=== PATIENT | male | born 1950 | race American Indian/Alaskan Native ===

== ENCOUNTER 2016-11-17 13:21 | Outpatient (CLI) | payer BC, MEDICARE ==
--- NOTE | 2016-11-17 13:58 | XRay Report ---
LEFT KNEE, 3 VIEWS History: Acute left knee pain. Findings: Bone mineralization is within normal limits. Minimal osteoarthritic findings are demonstrated. There is no evidence for fracture, bone lesion or large osteochondral defect. A small joint effusion is suspected on the lateral image. Impression: Minimal osteoarthritic changes. Small joint effusion.
== END 2016-11-17 13:22 | disposition home or self-care (01) ==
LOC: XRAY 13:21
PROVIDERS: ATTEND Internal Medicine
DX: M17.12 Unilateral primary osteoarthritis, left knee (principal)

== ENCOUNTER 2018-08-10 11:59 | Outpatient (CLI) | payer BC, MEDICARE ==
[2018-08-10 12:37] LABS: BUN/Creatinine Ratio 16; Blood Urea Nitrogen 14 mg/dL (9-20); Calcium 8.7 mg/dL (8.4-10.2); Hemolysis Index 7
== END 2018-08-10 12:00 | disposition home or self-care (01) ==
LOC: LAB 11:59
PROVIDERS: ATTEND Internal Medicine
DX: I10 Essential (primary) hypertension (principal); M19.90 Unspecified osteoarthritis, unspecified site
CPT/HCPCS: 36415; 80048; 85652; 86140; 86618

== ENCOUNTER 2018-10-15 10:32 | Outpatient (CLI) | payer BC, MEDICARE ==
[2018-10-15 10:58] LABS: Basophils % (Auto) 0.9 % (0.0-1.8); Eosinophils # (Auto) 0.1 K/mm3 (0.0-0.4); Hematocrit 42.4 % (35.5-45.6); Lymphocytes # (Auto) 2.5 K/mm3 (1.2-5.4); Lymphocytes % (Auto) 45.8 % (13.4-35.0); Mean Corpuscular HGB Conc 35 % (32-34); Mean Corpuscular Volume 94 fl (84-94); Monocytes # (Auto) 0.6 K/mm3 (0.0-0.8); Monocytes % (Auto) 11.4 % (0.0-7.3); Platelet Count 237 K/mm3 (140-440); Red Blood Count 4.51 M/mm3 (3.65-5.03); Red Cell Distribution Width 13.6 % (13.2-15.2)
[2018-10-15 11:28] LABS: Alanine Aminotransferase 18 units/L (7-56); Albumin 3.8 g/dL (3.9-5); BUN/Creatinine Ratio 13; Blood Urea Nitrogen 10 mg/dL (9-20); Calcium 8.8 mg/dL (8.4-10.2); Chol/HDL Ratio 3.33 %; HDL Cholesterol 51 mg/dL (40-59); Hemolysis Index 2; LDL Cholesterol,Direct 120 mg/dL (50-130)
== END 2018-10-15 10:33 | disposition home or self-care (01) ==
LOC: LAB 10:32
PROVIDERS: ATTEND Internal Medicine
DX: Z12.5 Encounter for screening for malignant neoplasm of prostate (principal); I10 Essential (primary) hypertension
CPT/HCPCS: 36415; 80053; 80061; 84153; 84443; 85025

== ENCOUNTER 2018-10-22 10:02 | Outpatient (CLI) | payer BC, MEDICARE ==
--- NOTE | 2018-10-22 12:59 | Magnetic Resonance Report ---
MRI LUMBAR SPINE WITHOUT CONTRAST INDICATION / CLINICAL INFORMATION: M54.16) RADICULOPATHY,LUMBAR REGION. TECHNIQUE: Multisequence, multiplanar images of the lumbar spine were obtained. COMPARISON: None available. FINDINGS: ALIGNMENT: Normal lumbar lordosis without significant scoliosis. VERTEBRAE:Normal marrow signal and vertebral body height for age. VISUALIZED SPINAL CORD: No significant abnormality. [id number] ANALYSIS: L1-2: No significant abnormality. L2-3: There is degenerative disc disease with disc height loss and Modic type II fatty change in the vertebral endplates as well as endplate osteophyte formation. There is no significant spinal canal or neural foraminal narrowing. L3-4: There is degenerative disc disease with disc height loss and Modic type II fatty change of the vertebral endplates as well as endplate osteophyte formation and mild bilateral facet DJD. The endpla te osteophytes and facet hypertrophy result in moderate left and mild right neural foraminal narrowin g. L4-5: There is moderate symmetric bulging of the disc and moderate bilateral facet DJD with ligamentu m flavum thickening. The combination of the disc bulge and ligamentum flavum thickening results in mo derate central canal stenosis. There is also moderate bilateral foraminal narrowing. L5-S1: There is mild bilateral facet DJD without significant spinal canal or neural foraminal narrowi ng. PARASPINAL SOFT TISSUES: No significant abnormality. ADDITIONAL FINDINGS: There are large bilateral renal cysts, the visualized portions of which are simp le. IMPRESSION: 1. Degenerative findings from L2 through S1 as described with moderate central canal stenosis at L4-5 due to a disc bulge and ligamentum flavum thickening. 2. Multifocal mild to moderate neural foraminal narrowing, most significant on the left at L3-4 and b ilaterally at L4-5. Signer Name: Gentry Bhat MD Signed: 10/22/2018 12:54 PM Workstation Name: [email or web address]
== END 2018-10-22 10:03 | disposition home or self-care (01) ==
LOC: MRI 10:02
PROVIDERS: ATTEND Internal Medicine Gastroenterology
DX: M47.26 Other spondylosis with radiculopathy, lumbar region (principal); M25.78 Osteophyte, vertebrae; I10 Essential (primary) hypertension; M19.90 Unspecified osteoarthritis, unspecified site
CPT/HCPCS: 72148

== ENCOUNTER 2019-07-22 07:36 | Day surgery (SDC) | payer BC, MEDICARE, OTHER ==
[~2019-07-22 07:36] MED LIST: SODIUM CHLORIDE 0.9% 1000 ML 1,000 ML IV SCH
--- NOTE | 2019-07-22 08:31 | Anesthesia Consultation ---
Anesthesia Consult and Med Hx Date of service: 07/22/19 - Airway Anesthetic Teeth Evaluation: Good ROM Head & Neck: Adequate Mental/Hyoid Distance: Adequate Mallampati Class: Class II Intubation Access Assessment: Probably Good - Pre-Operative Health Status ASA Pre-Surgery Classification: ASA2 Proposed Anesthetic Plan: MAC - Pulmonary Hx Smoking: No Hx Asthma: No Hx Respiratory Symptoms: No SOB: No COPD: No Home Oxygen Therapy: No Hx Pneumonia: No Hx Sleep Apnea: Yes - Cardiovascular System Hx Hypertension: Yes Hx Coronary Artery Disease: No Hx Heart Attack/AMI: No Hx Angina: No Hx Percutaneous Transluminal Coronary Angioplasty (PTCA): No Hx Cardia Arrhythmia: No Hx Pacemaker: No Hx Internal Defibrillator: No Hx Valvular Heart Disease: No Hx Heart Murmur: No Hx Peripheral Vascular Disease: No - Central Nervous System Hx Neuromuscular Disorder: No Hx Seizures: No CVA: No Hx Back Pain: Yes (injections) Hx Psychiatric Problems: No - Gastrointestinal Hx Ulcer: No Hx Gastroesophageal Reflux Disease: No - Endocrine Hx Renal Disease: No Hx End Stage Renal Disease: No Hx Cirrhosis: No Hx Liver Disease: No Hx Insulin Dependent Diabetes: No Hx Non-Insulin Dependent Diabetes: No Hx Thyroid Disease: No Hx Hypothyroidism: No Hx Hyperthyroidism: No - Hematic Hx Anemia: No Hx Sickle Cell Disease: No - Other Systems Hx Alcohol Use: No Hx Substance Use: No Hx Cancer: No Hx Obesity: Yes
--- NOTE | 2019-07-22 08:32 | Anesthesia Day of Surgery ---
Anesthesia Day of Surgery - Day of Surgery Patient Examined: Yes Patient H&P Reviewed: Yes Patient is NPO: Yes Beta Blockers: No
[2019-07-22] MEDS ORDERED: LIDOCAINE MPF (2%) 20 MG/1 ML VIAL 5 ML ONE (09:00)
[2019-07-22] MEDS ORDERED: propofoL 200 MG/20 ML VIAL IV ONE ×2 (10:06→10:07)
--- NOTE | 2019-07-22 10:48 | Procedure Note ---
Date of procedure: 07/22/19 Pre-op diagnosis: GERD/ F/H/O Stomach Cancer (maternal uncle)/ Colon Polyp Screening Post-op diagnosis: other (Incidental Grade 1 to 2 Esophageal Varices/Mild to Moderate Erosive Esophagitis/ Gastritis/Small,Recto-Sigmoid Polyps/ Mild to Moderate Internal Hemorrhoids) Anesthesia: MAC Surgeon: LYLA NARAYANAN Estimated blood loss: minimal Pathology: list Specimen disposition: to lab Condition: stable Disposition: same day (Treat with PPI and OTC Hemorrhoidal medication. Patient needs to be on low dose,non-selective beta joni if ok with the patient's PCP. Avoid aspirin and NSAID for 4 days, otherwise resume home medication. Follow up in 1 to 2 weeks ([phone]).)
[2019-07-22 10:54] VITALS: BP 115/74
--- NOTE | 2019-07-22 10:55 | Operative Report ---
PROCEDURE: Esophagogastroduodenoscopy with biopsy. INDICATIONS: A 68-year-old -[place] gentleman who has a family history of stomach cancer. The patient's maternal uncle had stomach cancer. Lately, he has been having some dyspeptic symptoms. EGD was done to assess for the problem. The procedure was done after getting informed consent with MAC anesthesia. Instrument was passed through the hypopharynx into the esophagus, which showed evidence of grade 1-2 incidental esophageal varices and [id number]-[id number] distal erosive esophagitis. Biopsy was done from the distal esophagus. Stomach showed gastritis and the pylorus was patent. Duodenum in the first and second portion appeared normal. Additional biopsy was done from the gastric antrum, gastric body and angular incisura. There was minimal bleeding from the biopsy sites. ASSESSMENT: Gastroesophageal reflux disease symptoms, mild to moderate erosive esophagitis, gastritis grade 1-2 esophageal varices. The patient will be asked to avoid aspirin and aspirin-related products for the next 4-5 days, treated with PPI. Also asked to refrain from any alcoholic beverages. The patient may require to be placed on a low dose beta joni because of the incidental grade 1-2 esophageal varices and the patient will be advised to check with his primary care physician before being placed on that and a colonoscopy will be done as part of colon polyp screening. The procedure was done in the GI lab with assistance of the GI lab team, which included ALAINA Ward and volodymyr Mcgowan and with assistance of anesthesia. [facility]# [id number] GARY/SHYANNE
--- NOTE | 2019-07-22 10:58 | Operative Report ---
PROCEDURE: Colonoscopy. INDICATIONS: This is a 68-year-old -[place] gentleman who had a colonoscopy done as part of colon polyp screening. He had an EGD done prior to the colonoscopy, which showed mild to moderate erosive esophagitis, gastritis and grade 1-2 esophageal varices. The procedure was done after getting informed consent with MAC anesthesia. Initial rectal exam was unremarkable. Instrument was passed through the rectum onto the cecum, which was identified with ileocecal valve and appendiceal orifice. The cecum was also examined on the retroverted view. Visualization was fair to good. Cecum, ascending colon, transverse colon, descending colon, and sigmoid showed normal mucosa. There were multiple small, possibly hyperplastic rectosigmoid polyps noted that were removed by cold biopsy and the rectum showed mild to moderate internal hemorrhoid on the retroverted view. ASSESSMENT: Colon polyp screening, multiple small rectosigmoid polyps, mild to moderate internal hemorrhoid. PLAN: To have the patient avoid aspirin and aspirin-related products for the next few days. Resume home medication. Encouraged the patient to take [id number] hemorrhoidal medications. Treat the patient with PPI and to discuss with the patient's primary care physician about being placed on a low-dose nonselective beta joni because of the findings of grade 1-2 esophageal varices. The patient will also be asked to follow up in the office in 1-2 weeks' time. The procedure was done in the GI lab with assistance of the GI lab team, which included volodymyr Hargrove and with assistance of anesthesia. [facility]# [id number] GARY/SHYANNE
--- NOTE | 2019-07-22 12:51 | Post Anesthesia Evaluation ---
- Post Anesthesia Evaluation Patient Participated: Yes Airway Patent: Yes Stable Respiratory Function: Yes Nausea/Vomiting: No Temp > 96.8F: Yes Pain Manageable: Yes Adequeate Hydration: Yes Anesthesia Complications: No Block Receding Appropriately: Not Applicable Patient on Ventilator: No
== END 2019-07-22 07:37 | disposition home or self-care (01) ==
LOC: GIO 07:36
DX: Z12.11 Encounter for screening for malignant neoplasm of colon (principal); K64.8 Other hemorrhoids; K21.0 Gastro-esophageal reflux disease with esophagitis; I85.00 Esophageal varices without bleeding; K29.70 Gastritis, unspecified, without bleeding; H40.9 Unspecified glaucoma; I10 Essential (primary) hypertension; G47.30 Sleep apnea, unspecified; E66.9 Obesity, unspecified; M19.90 Unspecified osteoarthritis, unspecified site; Z68.31 Body mass index [BMI] 31.0-31.9, adult; Z79.899 Other long term (current) drug therapy
CPT/HCPCS: 43239; 45380; 88305; 88341; 88342; J2704; J7030

== ENCOUNTER 2019-10-13 10:22 | Outpatient (CLI) | payer BC ==
[2019-10-13 10:52] LABS: Basophils % (Auto) 0.6 % (0.0-1.8); Eosinophils # (Auto) 0.1 K/mm3 (0.0-0.4); Eosinophils % (Auto) 1.6 % (0.0-4.3); Hematocrit 40.1 % (35.5-45.6); Hemoglobin 13.9 gm/dl (11.8-15.2); Lymphocytes # (Auto) 2.2 K/mm3 (1.2-5.4); Lymphocytes % (Auto) 47.3 % (13.4-35.0); Mean Corpuscular HGB Conc 35 % (32-34); Mean Corpuscular Volume 93 fl (84-94); Monocytes # (Auto) 0.6 K/mm3 (0.0-0.8); Monocytes % (Auto) 12.3 % (0.0-7.3); Platelet Count 259 K/mm3 (140-440); Red Blood Count 4.31 M/mm3 (3.65-5.03); Red Cell Distribution Width 13.9 % (13.2-15.2)
[2019-10-13 11:20] LABS: Alanine Aminotransferase 14 units/L (7-56); Albumin 3.6 g/dL (3.9-5); Blood Urea Nitrogen 10 mg/dL (9-20); Calcium 8.4 mg/dL (8.4-10.2); Chol/HDL Ratio 3.17 %; HDL Cholesterol 51 mg/dL (40-59); Hemolysis Index 5; LDL Cholesterol,Direct 104 mg/dL (50-130)
[2019-10-13 11:24] LABS: BUN/Creatinine Ratio 14
== END 2019-10-13 10:23 | disposition home or self-care (01) ==
LOC: LAB 10:22
PROVIDERS: ATTEND Internal Medicine
DX: Z12.5 Encounter for screening for malignant neoplasm of prostate (principal); Z00.00 Encounter for general adult medical examination without abnormal findings
CPT/HCPCS: 36415; 80053; 80061; 84153; 84443; 85025